=== PATIENT | male | born 1980 | race Caucasian/White ===

== ENCOUNTER 2022-09-15 12:05 | Emergency (ER) | payer MEDICAID, OTHER ==
[~2022-09-15] VITALS: Ht 167.6 cm; Wt 90.9 kg
[~2022-09-15 12:05] MED LIST: ATEN-72 PO; BENZ1TAB96 PO; CHOL100018 PO; DOCU-350 PO; FLUP25VI5 IM; PALI6TAB15 PO; PANT-31 PO; SIMV-261 PO
[2022-09-15 12:10] VITALS: BP 133/92
[2022-09-15] MEDS ORDERED: LORazepam 1 MG TABLET PO ONE (15:45)
[2022-09-15 16:01] LABS: BASOPHILS % (AUTO) 0.7 % (0.0-2.0); EOSINOPHILS % (AUTO) 0.4 % (1.0-6.0); HEMATOCRIT 46.6 % (41-53); LYMPHOCYTES # (AUTO) 1.5 K/uL (1.0-4.8); LYMPHOCYTES % (AUTO) 12.5 % (22.0-44.0); MEAN CORPUSCULAR HGB CONC 32.1 G/dL (31.0-37.0); MEAN CORPUSCULAR VOLUME 75 fL (80-100); MONOCYTES # (AUTO) 0.4 K/uL (0.1-1.0); MONOCYTES % (AUTO) 3.4 % (2.0-9.0); NEUTROPHILS # (AUTO) 10.1 K/uL (1.8-7.7); PLATELET COUNT (AUTO) 408 K/uL (150-450); RED BLOOD CELL COUNT(AUTO) 6.23 MIL/uL (4.50-5.90); RED CELL DISTRIBUTION WIDTH 13.8 % (11.5-14.5)
[2022-09-15 16:14] LABS: ANION GAP 7 mmol/L (8-16); CALCIUM, TOTAL 10.4 mg/dL (8.8-10.5); CARBON DIOXIDE 29 mmol/L (22-29); CHLORIDE 101 mmol/L (98-107); CREATININE 1.08 mg/dL (0.60-1.30); GLUCOSE,RANDOM 114 mg/dL (70-110); POTASSIUM 4.3 mmol/L (3.5-5.1); SODIUM SERUM 137 mmol/L (136-145); UREA NITROGEN, BLOOD 11 mg/dL (7-18)
[2022-09-15 16:16] LABS: GLOMERULAR FILTR. RATE CALC > 60 mL/min (>60)
[2022-09-15 16:26] LABS: ALANINE AMINOTRANSFERASE 22 U/L (12-78); ALBUMIN 4.6 g/dL (3.4-5.0); ALKALINE PHOSPHATASE 84 U/L (46-116); ASPARTATE AMINOTRANSFERASE 15 U/L (15-37); BILIRUBIN,TOTAL 0.4 mg/dL (0.1-1.0); TOTAL PROTEIN, SERUM 8.7 g/dL (6.4-8.2)
== END 2022-09-15 18:02 | disposition home or self-care (01) ==
LOC: EMS 12:08
DX: F41.9 Anxiety disorder, unspecified (principal); E78.00 Pure hypercholesterolemia, unspecified; R45.1 Restlessness and agitation; I10 Essential (primary) hypertension; F20.0 Paranoid schizophrenia
CPT/HCPCS: 99283; 80053; 85025; 36415; G0480

== ENCOUNTER 2022-10-12 10:47 | Inpatient (IN) | payer MEDICAID ==
[~2022-10-12] VITALS: Ht 167.6 cm; Wt 79.8 kg
[2022-10-12] MEDS ORDERED: ZOLP10TA8 PO (11:20)
[2022-10-12] MEDS ORDERED: LORA-999 PO (11:20)
[2022-10-12] MEDS ORDERED: ESOM40CA54 PO (11:20)
[2022-10-12 13:05] LABS: AMPHET/METH SCREEN,URINE NEGATIVE (NEGATIVE); BARBITURATE SCREEN, URINE NEGATIVE (NEGATIVE); BENZODIAZEPINES SCREEN,URINE NEGATIVE (NEGATIVE); CANNABINOID SCREEN,URINE NEGATIVE (NEGATIVE); COCAINE SCREEN,URINE NEGATIVE (NEGATIVE); METHADONE SCREEN, URINE NEGATIVE (NEGATIVE); OPIATE SCREEN,URINE NEGATIVE (NEGATIVE)
[2022-10-12 13:06] LABS: PHENCYCLIDINE SCREEN,URINE NEGATIVE (NEGATIVE)
[2022-10-12 13:08] LABS: BASOPHILS % (AUTO) 0.5 % (0.0-2.0); EOSINOPHILS % (AUTO) 0.5 % (1.0-6.0); HEMATOCRIT 42.8 % (41-53); HEMOGLOBIN 14.2 g/dL (13.5-17.5); LYMPHOCYTES # (AUTO) 1.1 K/uL (1.0-4.8); LYMPHOCYTES % (AUTO) 10.3 % (22.0-44.0); MEAN CORPUSCULAR HEMOGLOBIN 24.4 pg (26.0-34.0); MEAN CORPUSCULAR HGB CONC 33.2 G/dL (31.0-37.0); MEAN CORPUSCULAR VOLUME 74 fL (80-100); MONOCYTES # (AUTO) 0.4 K/uL (0.1-1.0); MONOCYTES % (AUTO) 4.4 % (2.0-9.0); NEUTROPHILS # (AUTO) 8.6 K/uL (1.8-7.7); NEUTROPHILS % (AUTO) 84.3 % (40.0-70.0); PLATELET COUNT (AUTO) 404 K/uL (150-450); RED BLOOD CELL COUNT(AUTO) 5.82 MIL/uL (4.50-5.90); RED CELL DISTRIBUTION WIDTH 13.7 % (11.5-14.5)
[2022-10-12 14:13] LABS: ANION GAP 4 mmol/L (8-16); CALCIUM, TOTAL 10.1 mg/dL (8.8-10.5); CARBON DIOXIDE 30 mmol/L (22-29); CHLORIDE 101 mmol/L (98-107); CREATININE 1.07 mg/dL (0.60-1.30); GLOMERULAR FILTR. RATE CALC > 60 mL/min (>60); GLUCOSE,RANDOM 98 mg/dL (70-110); POTASSIUM 4.7 mmol/L (3.5-5.1); SODIUM SERUM 135 mmol/L (136-145); UREA NITROGEN, BLOOD 12 mg/dL (7-18)
[2022-10-12 14:19] LABS: ALANINE AMINOTRANSFERASE 24 U/L (12-78); ALBUMIN 4.1 g/dL (3.4-5.0); ALKALINE PHOSPHATASE 76 U/L (46-116); ASPARTATE AMINOTRANSFERASE 14 U/L (15-37); BILIRUBIN,TOTAL 0.4 mg/dL (0.1-1.0)
[2022-10-12 18:43] LABS: COVID AG,FIA SOURCE NASAL SWAB
[2022-10-12] MEDS ORDERED: FERR325T23 PO (18:45)
[2022-10-12] MEDS ORDERED: HALOPERIDOL 5 MG TABLET PO PRN (18:45)
[2022-10-12] MEDS ORDERED: RISPC50 IM (18:45)
[2022-10-12] MEDS ORDERED: CHOL25TA4 PO (18:45)
[2022-10-12] MEDS ORDERED: INFLUENZA VIRUS VACCINE QVS 2022-23 (6MO+)/PF 60 MCG/0.5 ML SYRINGE IM. ONE (22:00)
[2022-10-12 22:12] VITALS: BP 125/85
[2022-10-13 07:29] LABS: CHOL/HDL RATIO 3.4 (4.2-7.3); FREE T4 (FREE THYROXINE) 1.24 ng/dL (0.76-1.46); THYROID STIMULATING HORMONE 1.7 uIU/mL (0.36-3.74)
[2022-10-13 09:13] VITALS: BP 122/70
[2022-10-13] MEDS ORDERED: IBUPROFEN 600 MG TABLET PO PRN (19:30)
[2022-10-13] MEDS ORDERED: PETROLATUM,WHITE 28 GM JELLY TP PRN (19:30)
[2022-10-13] MEDS ORDERED: CloNIDine HCL 0.1 MG TABLET PO PRN (19:30)
[2022-10-13] MEDS ORDERED: ACETAMINOPHEN 325 MG TABLET PO PRN (19:30)
[2022-10-13] MEDS ORDERED: MAG HYDROX/AL HYDROX/SIMETH ES 30 ML SUSPENSION UDCUP PO PRN (19:30)
[2022-10-13] MEDS ORDERED: BACITRACIN 28 GM OINTMENT TP PRN (19:30)
[2022-10-13] MEDS ORDERED: ONDANSETRON HCL 4 MG TABLET PO PRN (19:30)
[2022-10-13] MEDS ORDERED: BENZOCAINE/MENTHOL LOZENGE PO PRN (19:30)
[2022-10-13] MEDS ORDERED: ALBUTEROL SULFATE HFA 90 MCG/PUFF 8 GM INHALER IH PRN (19:30)
[2022-10-13] MEDS ORDERED: LOPERAMIDE HCL 2 MG CAPSULE PO PRN (19:30)
[2022-10-13] MEDS ORDERED: MAGNESIUM HYDROXIDE SUSPENSION 30 ML UDCUP PO PRN (19:30)
[2022-10-13 21:01] VITALS: BP 126/83
[2022-10-13] MEDS: ZOLPIDEM TARTRATE 10 MG TABLET PO PRN (21:36)
[2022-10-14] MEDS: FERROUS SULFATE 325 MG EC TABLET PO SCH ×2 (07:00→16:35)
[2022-10-14 08:25] VITALS: BP 106/78
[2022-10-14] MEDS ORDERED: RisperiDONE MICROSPHERES 50 MG/2 ML SYRINGE IM SCH (09:00)
[2022-10-14] MEDS: ATENOLOL 50 MG TABLET PO SCH (10:34)
[2022-10-14] MEDS: SIMVASTATIN 40 MG TABLET PO SCH (10:34)
[2022-10-14] MEDS: CHOLECALCIFEROL (VIT D3) 1,000 UNITS [25 MCG] TABLET PO SCH (10:34)
[2022-10-14] MEDS: QUEtiapine FUMARATE 300 MG TABLET PO SCH (20:32)
[2022-10-14 20:34] VITALS: BP 191/69
[2022-10-15] MEDS: FERROUS SULFATE 325 MG EC TABLET PO SCH ×2 (06:43→17:00)
[2022-10-15] MEDS: ATENOLOL 50 MG TABLET PO SCH (08:42)
[2022-10-15] MEDS: SIMVASTATIN 40 MG TABLET PO SCH (08:42)
[2022-10-15] MEDS: CHOLECALCIFEROL (VIT D3) 1,000 UNITS [25 MCG] TABLET PO SCH (08:42)
[2022-10-15 09:19] VITALS: BP 111/72
[2022-10-15] MEDS: QUEtiapine FUMARATE 300 MG TABLET PO SCH (20:20)
[2022-10-15 20:33] VITALS: BP 110/70
[2022-10-15] MEDS: ZOLPIDEM TARTRATE 10 MG TABLET PO PRN (21:25)
[2022-10-16] MEDS: LORazepam 2 MG TABLET PO PRN ×3 (00:48→21:25)
[2022-10-16] MEDS: FERROUS SULFATE 325 MG EC TABLET PO SCH ×2 (06:41→16:52)
[2022-10-16] MEDS: DOCUSATE SODIUM 100 MG CAPSULE PO PRN (08:33)
[2022-10-16] MEDS: ATENOLOL 50 MG TABLET PO SCH (08:34)
[2022-10-16] MEDS: SIMVASTATIN 40 MG TABLET PO SCH (08:34)
[2022-10-16] MEDS: CHOLECALCIFEROL (VIT D3) 1,000 UNITS [25 MCG] TABLET PO SCH (08:34)
[2022-10-16 09:40] VITALS: BP 105/81
[2022-10-16] MEDS: OMEPRAZOLE 20 MG CAPSULE PO PRN (12:31)
[2022-10-16 20:00] VITALS: BP 114/64
[2022-10-16] MEDS: QUEtiapine FUMARATE 300 MG TABLET PO SCH (20:39)
[2022-10-17] MEDS: FERROUS SULFATE 325 MG EC TABLET PO SCH ×2 (07:00→16:46)
[2022-10-17] MEDS: SIMVASTATIN 40 MG TABLET PO SCH (08:23)
[2022-10-17] MEDS: DOCUSATE SODIUM 100 MG CAPSULE PO PRN (08:23)
[2022-10-17] MEDS: CHOLECALCIFEROL (VIT D3) 1,000 UNITS [25 MCG] TABLET PO SCH (08:23)
[2022-10-17] MEDS: ATENOLOL 50 MG TABLET PO SCH (08:23)
[2022-10-17] MEDS: LORazepam 2 MG TABLET PO PRN (08:23)
[2022-10-17 08:37] VITALS: BP 115/79
[2022-10-17] MEDS: OMEPRAZOLE 20 MG CAPSULE PO PRN (11:24)
[2022-10-17] MEDS ORDERED: BENZ2TAB76 PO (17:21)
[2022-10-17] MEDS ORDERED: QUET300T2 PO (17:21)
== END 2022-10-17 19:44 | disposition home or self-care (01) | DRG 750 ==
LOC: EMS 10:52 → B3A 20:31
PROVIDERS: ADMIT Psychiatry & Neurology Psychiatry; ATTEND Psychiatry & Neurology Psychiatry
DX: F20.9 Schizophrenia, unspecified (principal); E78.00 Pure hypercholesterolemia, unspecified; Z20.822 Contact with and (suspected) exposure to COVID-19; F32.A Depression, unspecified; F41.9 Anxiety disorder, unspecified; G47.00 Insomnia, unspecified; I10 Essential (primary) hypertension; K59.00 Constipation, unspecified; K21.9 Gastro-esophageal reflux disease without esophagitis; Z72.0 Tobacco use; Z71.6 Tobacco abuse counseling
CPT/HCPCS: 80053; 80061; 83036; 84439; 84443; 85025; 99285; G0480; J2794

== ENCOUNTER 2022-10-22 19:55 | Inpatient (IN) | payer MEDICAID, OTHER ==
[~2022-10-22] VITALS: Ht 167.6 cm; Wt 78.1 kg
[~2022-10-22 19:55] MED LIST changes: -BENZ1TAB96 PO; +BENZ2TAB76 PO; -CHOL100018 PO; +CHOL25TA4 PO; -DOCU-350 PO; +FERR325T23 PO; -FLUP25VI5 IM; -PALI6TAB15 PO; -PANT-31 PO; +QUET300T2 PO; +RISPC50 IM
[2022-10-22] MEDS ORDERED: QUET300T2 PO (20:10)
[2022-10-22 20:43] LABS: BASOPHILS % (AUTO) 0.6 % (0.0-2.0); EOSINOPHILS % (AUTO) 0.8 % (1.0-6.0); HEMATOCRIT 42.6 % (41-53); HEMOGLOBIN 13.8 g/dL (13.5-17.5); LYMPHOCYTES # (AUTO) 1.4 K/uL (1.0-4.8); LYMPHOCYTES % (AUTO) 15.2 % (22.0-44.0); MEAN CORPUSCULAR HGB CONC 32.4 G/dL (31.0-37.0); MEAN CORPUSCULAR VOLUME 74 fL (80-100); MONOCYTES # (AUTO) 0.5 K/uL (0.1-1.0); MONOCYTES % (AUTO) 5.4 % (2.0-9.0); NEUTROPHILS # (AUTO) 7.1 K/uL (1.8-7.7); PLATELET COUNT (AUTO) 386 K/uL (150-450); RED BLOOD CELL COUNT(AUTO) 5.75 MIL/uL (4.50-5.90); RED CELL DISTRIBUTION WIDTH 13.9 % (11.5-14.5)
[2022-10-22 21:16] LABS: SODIUM SERUM 137 mmol/L (136-145)
[2022-10-22 21:17] LABS: ANION GAP 7 mmol/L (8-16); CALCIUM, TOTAL 9.6 mg/dL (8.8-10.5); CARBON DIOXIDE 27 mmol/L (22-29); CHLORIDE 103 mmol/L (98-107); CREATININE 1.08 mg/dL (0.60-1.30); GLOMERULAR FILTR. RATE CALC > 60 mL/min (>60); GLUCOSE,RANDOM 108 mg/dL (70-110); UREA NITROGEN, BLOOD 7 mg/dL (7-18)
[2022-10-22 21:25] LABS: ALANINE AMINOTRANSFERASE 22 U/L (12-78); ALBUMIN 4.2 g/dL (3.4-5.0); ALKALINE PHOSPHATASE 85 U/L (46-116); ASPARTATE AMINOTRANSFERASE 13 U/L (15-37); BILIRUBIN,TOTAL 0.3 mg/dL (0.1-1.0); TOTAL PROTEIN, SERUM 8.1 g/dL (6.4-8.2)
[2022-10-22] MEDS ORDERED: QUEtiapine FUMARATE 100 MG TABLET PO ONE (21:45)
[2022-10-22 21:57] LABS: COVID AG,FIA SOURCE NASOPHARYNGEAL
[2022-10-22] MEDS ORDERED: HALOPERIDOL 5 MG TABLET PO PRN (22:30)
[2022-10-23 01:02] LABS: APPEARANCE,URINE CLEAR (CLEAR); BILIRUBIN,URINE NEGATIVE (NEGATIVE); GLUCOSE, URINE (UA) NEGATIVE (NEGATIVE); LEUKOCYTE ESTERASE ,URINE NEGATIVE (NEGATIVE); NITRATE,URINE NEGATIVE (NEGATIVE); OCCULT BLOOD,URINE TRACE (NEGATIVE); PH,URINE 5.5 (5.0-8.0); PROTEIN,URINE NEGATIVE (NEGATIVE); SPECIFIC GRAVITIY, URINE 1.009 (1.003-1.030); UROBILINOGEN,URINE <=1.0 mg/dL (<=1.0)
[2022-10-23 01:08] LABS: AMPHET/METH SCREEN,URINE NEGATIVE (NEGATIVE); BARBITURATE SCREEN, URINE NEGATIVE (NEGATIVE); BENZODIAZEPINES SCREEN,URINE NEGATIVE (NEGATIVE); CANNABINOID SCREEN,URINE NEGATIVE (NEGATIVE); COCAINE SCREEN,URINE NEGATIVE (NEGATIVE); METHADONE SCREEN, URINE NEGATIVE (NEGATIVE); OPIATE SCREEN,URINE NEGATIVE (NEGATIVE)
[2022-10-23 01:12] LABS: PHENCYCLIDINE SCREEN,URINE NEGATIVE (NEGATIVE)
[2022-10-23 01:25] LABS: BACTERIA,URINE None Seen /HPF (None Seen); RBC,URINE 0-2 /HPF (0-2); SQUAMOUS EPITHELIAL CELL,UR None Seen /LPF (None Seen); WBC,URINE None Seen /HPF (0-5)
[2022-10-23 02:02] VITALS: BP 134/91
[2022-10-23] MEDS ORDERED: CloNIDine HCL 0.1 MG TABLET PO PRN (08:30)
[2022-10-23] MEDS ORDERED: BACITRACIN 28 GM OINTMENT TP PRN (08:30)
[2022-10-23] MEDS ORDERED: BENZOCAINE/MENTHOL LOZENGE PO PRN (08:30)
[2022-10-23] MEDS ORDERED: ONDANSETRON HCL 4 MG TABLET PO PRN (08:30)
[2022-10-23] MEDS ORDERED: IBUPROFEN 600 MG TABLET PO PRN (08:30)
[2022-10-23] MEDS ORDERED: MAG HYDROX/AL HYDROX/SIMETH ES 30 ML SUSPENSION UDCUP PO PRN (08:30)
[2022-10-23] MEDS ORDERED: ACETAMINOPHEN 325 MG TABLET PO PRN (08:30)
[2022-10-23] MEDS ORDERED: LOPERAMIDE HCL 2 MG CAPSULE PO PRN (08:30)
[2022-10-23] MEDS ORDERED: MAGNESIUM HYDROXIDE SUSPENSION 30 ML UDCUP PO PRN (08:30)
[2022-10-23] MEDS ORDERED: PETROLATUM,WHITE 28 GM JELLY TP PRN (08:30)
[2022-10-23] MEDS ORDERED: ALBUTEROL SULFATE HFA 90 MCG/PUFF 8 GM INHALER IH PRN (08:30)
[2022-10-23] MEDS: CHOLECALCIFEROL (VIT D3) 1,000 UNITS [25 MCG] TABLET PO SCH (09:38)
[2022-10-23] MEDS: SIMVASTATIN 40 MG TABLET PO SCH (09:38)
[2022-10-23] MEDS: ATENOLOL 50 MG TABLET PO SCH (09:38)
[2022-10-23] MEDS: DOCUSATE SODIUM 100 MG CAPSULE PO PRN (12:06)
[2022-10-23 16:09] VITALS: BP 113/71
[2022-10-23] MEDS: FERROUS SULFATE 325 MG EC TABLET PO SCH (17:55)
[2022-10-23] MEDS: ZOLPIDEM TARTRATE 10 MG TABLET PO PRN (20:53)
[2022-10-24] MEDS: FERROUS SULFATE 325 MG EC TABLET PO SCH ×2 (06:51→17:05)
[2022-10-24] MEDS: ATENOLOL 50 MG TABLET PO SCH ×2 (08:10→11:55)
[2022-10-24] MEDS: CHOLECALCIFEROL (VIT D3) 1,000 UNITS [25 MCG] TABLET PO SCH (08:12)
[2022-10-24] MEDS: SIMVASTATIN 40 MG TABLET PO SCH (08:12)
[2022-10-24 08:21] VITALS: BP 102/67
[2022-10-24 11:54] VITALS: BP 129/89
[2022-10-24 16:07] VITALS: BP 105/71
[2022-10-24] MEDS: ZOLPIDEM TARTRATE 10 MG TABLET PO PRN (21:12)
[2022-10-25] MEDS: CHOLECALCIFEROL (VIT D3) 1,000 UNITS [25 MCG] TABLET PO SCH (07:49)
[2022-10-25] MEDS: ATENOLOL 50 MG TABLET PO SCH (07:50)
[2022-10-25] MEDS: FERROUS SULFATE 325 MG EC TABLET PO SCH ×2 (07:50→17:41)
[2022-10-25] MEDS: SIMVASTATIN 40 MG TABLET PO SCH (07:50)
[2022-10-25 09:09] VITALS: BP 134/92
[2022-10-25 16:18] VITALS: BP 108/76
[2022-10-25] MEDS: ZOLPIDEM TARTRATE 10 MG TABLET PO PRN (22:35)
[2022-10-26] MEDS: FERROUS SULFATE 325 MG EC TABLET PO SCH ×2 (06:32→16:56)
[2022-10-26] MEDS: SIMVASTATIN 40 MG TABLET PO SCH (08:06)
[2022-10-26] MEDS: CHOLECALCIFEROL (VIT D3) 1,000 UNITS [25 MCG] TABLET PO SCH (08:06)
[2022-10-26 08:16] VITALS: BP 102/64
[2022-10-26] MEDS: ATENOLOL 50 MG TABLET PO SCH ×2 (09:00→11:20)
[2022-10-26 16:12] VITALS: BP 103/70
[2022-10-26] MEDS: ZOLPIDEM TARTRATE 10 MG TABLET PO PRN (21:01)
[2022-10-27 08:19] VITALS: BP 106/72
[2022-10-27] MEDS: ATENOLOL 50 MG TABLET PO SCH (08:24)
[2022-10-27] MEDS: CHOLECALCIFEROL (VIT D3) 1,000 UNITS [25 MCG] TABLET PO SCH (08:24)
[2022-10-27] MEDS: FERROUS SULFATE 325 MG EC TABLET PO SCH ×2 (08:24→17:30)
[2022-10-27] MEDS: SIMVASTATIN 40 MG TABLET PO SCH (08:24)
[2022-10-27] MEDS: LORazepam 2 MG TABLET PO PRN (14:46)
[2022-10-27 16:10] VITALS: BP 104/71
[2022-10-27] MEDS: ZOLPIDEM TARTRATE 10 MG TABLET PO PRN (22:07)
[2022-10-28] MEDS: FERROUS SULFATE 325 MG EC TABLET PO SCH ×2 (06:33→17:30)
[2022-10-28 08:22] VITALS: BP 120/78
[2022-10-28 09:19] LABS: COVID AG,FIA SOURCE NASAL SWAB
[2022-10-28] MEDS: ATENOLOL 50 MG TABLET PO SCH (09:35)
[2022-10-28] MEDS: SIMVASTATIN 40 MG TABLET PO SCH (09:35)
[2022-10-28] MEDS: CHOLECALCIFEROL (VIT D3) 1,000 UNITS [25 MCG] TABLET PO SCH (09:35)
[2022-10-28 16:16] VITALS: BP 120/82
[2022-10-28] MEDS: ZOLPIDEM TARTRATE 10 MG TABLET PO PRN (23:05)
[2022-10-29] MEDS: FERROUS SULFATE 325 MG EC TABLET PO SCH ×2 (06:35→17:30)
[2022-10-29 08:46] VITALS: BP 97/63
[2022-10-29] MEDS: SIMVASTATIN 40 MG TABLET PO SCH (10:53)
[2022-10-29] MEDS: ATENOLOL 50 MG TABLET PO SCH (10:53)
[2022-10-29] MEDS: CHOLECALCIFEROL (VIT D3) 1,000 UNITS [25 MCG] TABLET PO SCH (10:53)
[2022-10-29] MEDS: DOCUSATE SODIUM 100 MG CAPSULE PO PRN (10:55)
[2022-10-29] MEDS: OMEPRAZOLE 20 MG CAPSULE PO PRN (13:32)
[2022-10-29] MEDS ORDERED: RisperiDONE MICROSPHERES 50 MG/2 ML SYRINGE IM ONE (13:45)
[2022-10-29 16:00] VITALS: BP 119/83
[2022-10-29] MEDS: LORazepam 2 MG TABLET PO PRN ×2 (16:02→20:32)
[2022-10-29] MEDS: ZOLPIDEM TARTRATE 10 MG TABLET PO PRN (22:17)
[2022-10-30] MEDS: FERROUS SULFATE 325 MG EC TABLET PO SCH ×2 (07:05→16:48)
[2022-10-30] MEDS: ATENOLOL 50 MG TABLET PO SCH (08:29)
[2022-10-30] MEDS: SIMVASTATIN 40 MG TABLET PO SCH (08:29)
[2022-10-30] MEDS: CHOLECALCIFEROL (VIT D3) 1,000 UNITS [25 MCG] TABLET PO SCH (08:30)
[2022-10-30] MEDS: OMEPRAZOLE 20 MG CAPSULE PO PRN (08:37)
[2022-10-30 09:06] VITALS: BP 121/76
[2022-10-30 16:42] VITALS: BP 113/79
== END 2022-10-30 18:15 | disposition home or self-care (01) | DRG 750 ==
LOC: EMS 19:55 → 3EC 22:00
PROVIDERS: ADMIT Psychiatry & Neurology Psychiatry; ATTEND Psychiatry & Neurology Psychiatry
DX: F20.9 Schizophrenia, unspecified (principal); E78.00 Pure hypercholesterolemia, unspecified; I10 Essential (primary) hypertension; K21.9 Gastro-esophageal reflux disease without esophagitis; F32.A Depression, unspecified; F41.9 Anxiety disorder, unspecified; G47.00 Insomnia, unspecified; K59.00 Constipation, unspecified; Z20.822 Contact with and (suspected) exposure to COVID-19
CPT/HCPCS: 80053; 80307; 81001; 83036; 85025; 87081; 99285; G0480; J2794

== ENCOUNTER 2023-11-26 14:10 | Emergency (ER) | payer MEDICAID, OTHER ==
[~2023-11-26] VITALS: Ht 170.2 cm; Wt 77.3 kg
[~2023-11-26 14:10] MED LIST changes: -BENZ2TAB76 PO; -QUET300T2 PO; -RISPC50 IM
[2023-11-26 14:14] VITALS: TEMP 98.4
[2023-11-26] MEDS ORDERED: BENZ2TAB71 PO (14:20)
[2023-11-26] MEDS ORDERED: QUET200T30 PO (14:20)
[2023-11-26] MEDS ORDERED: PALI234D IM (14:20)
[2023-11-26 15:11] LABS: BASOPHILS % (AUTO) 0.8 % (0.0-2.0); EOSINOPHILS % (AUTO) 0.6 % (1.0-6.0); HEMATOCRIT 41.7 % (41-53); HEMOGLOBIN 13.7 g/dL (13.5-17.5); LYMPHOCYTES # (AUTO) 1.1 K/uL (1.0-4.8); LYMPHOCYTES % (AUTO) 12.1 % (22.0-44.0); MEAN CORPUSCULAR HEMOGLOBIN 24.6 pg (26.0-34.0); MEAN CORPUSCULAR VOLUME 74 fL (80-100); MONOCYTES # (AUTO) 0.4 K/uL (0.1-1.0); MONOCYTES % (AUTO) 5.1 % (2.0-9.0); NEUTROPHILS # (AUTO) 7.2 K/uL (1.8-7.7); NEUTROPHILS % (AUTO) 81.4 % (40.0-70.0); PLATELET COUNT (AUTO) 371 K/uL (150-450); RED CELL DISTRIBUTION WIDTH 13.9 % (11.5-14.5); WHITE BLOOD COUNT (AUTO) 8.8 K/uL (4.5-11.0)
[2023-11-26] MEDS ORDERED: LORazepam 1 MG TABLET PO ONE (15:15)
[2023-11-26 15:19] LABS: PH,URINE DRUG SCREEN 6.5 (5.0-8.0)
[2023-11-26 15:23] LABS: ANION GAP 7 mmol/L (8-16); CALCIUM, TOTAL 9.4 mg/dL (8.8-10.5); CARBON DIOXIDE 29 mmol/L (22-29); CHLORIDE 99 mmol/L (98-107); CREATININE 0.96 mg/dL (0.60-1.30); GLOMERULAR FILTR. RATE CALC > 60 mL/min (>60); GLUCOSE,RANDOM 100 mg/dL (70-110); POTASSIUM 4.2 mmol/L (3.5-5.1); SODIUM SERUM 135 mmol/L (136-145); UREA NITROGEN, BLOOD 10 mg/dL (7-18)
[2023-11-26 15:26] LABS: AMPHET/METH SCREEN,URINE NEGATIVE (NEGATIVE); BARBITURATE SCREEN, URINE NEGATIVE (NEGATIVE); BENZODIAZEPINES SCREEN,URINE NEGATIVE (NEGATIVE); CANNABINOID SCREEN,URINE NEGATIVE (NEGATIVE); COCAINE SCREEN,URINE NEGATIVE (NEGATIVE); METHADONE SCREEN, URINE NEGATIVE (NEGATIVE); OPIATE SCREEN,URINE NEGATIVE (NEGATIVE); PHENCYCLIDINE SCREEN,URINE NEGATIVE (NEGATIVE)
[2023-11-26 15:27] LABS: ALCOHOL, URINE DRUG SCREEN NEGATIVE (NEGATIVE)
[2023-11-26 15:31] LABS: ALANINE AMINOTRANSFERASE 27 U/L (12-78); ALBUMIN 4.3 g/dL (3.4-5.0); ALKALINE PHOSPHATASE 80 U/L (46-116); ASPARTATE AMINOTRANSFERASE 18 U/L (15-37); BILIRUBIN,TOTAL 0.3 mg/dL (0.1-1.0); TOTAL PROTEIN, SERUM 7.5 g/dL (6.4-8.2)
[2023-11-26 15:38] LABS: ALCOHOL, BLOOD (SERUM) < 3 mg/dL (0-10)
[2023-11-26 16:49] VITALS: BP 126/79; PULSE 88; RESP 18
== END 2023-11-26 17:00 | disposition home or self-care (01) ==
LOC: EMS 14:10
DX: F20.9 Schizophrenia, unspecified (principal); E78.00 Pure hypercholesterolemia, unspecified; I10 Essential (primary) hypertension
CPT/HCPCS: 99283; 80053; 85025; 36415; 80307; G0480